=== PATIENT | male | born 1965 | race African-American/Black ===

== ENCOUNTER 2017-06-10 12:48 | Emergency (ER) | payer SELFPAY ==
[~2017-06-10] VITALS: Ht 190.5 cm; Wt 106.0 kg
[2017-06-10] MEDS ORDERED: MORPHINE SULFATE 10 MG/ML CPJ IM ONE (15:15)
[2017-06-10 15:24] VITALS: BP 167/85
== END 2017-06-10 16:02 | disposition home or self-care (01) ==
LOC: ER 13:51
DX: R51 Headache (principal); Z87.81 Personal history of (healed) traumatic fracture; Z98.890 Other specified postprocedural states; Z88.8 Allergy status to other drugs, medicaments and biological substances
CPT/HCPCS: 96372; 99283; J2270; Z7610